=== PATIENT | female | born 1990 | race Caucasian/White ===

== ENCOUNTER 2018-05-03 18:11 | Emergency (ER) | payer OTHER ==
[~2018-05-03] VITALS: Ht 160 cm; Wt 100.0 kg
[2018-05-03] MEDS ORDERED: IOHEXOL 350 MG/ML 10 ML VIAL (for RAD DIAG) IVCONTRAST ONE (18:12)
[2018-05-03 19:22] VITALS: BP 133/75; PULSE 96; RESP 16; TEMP 98.6; O2SAT 100
--- NOTE | 2018-05-03 23:47 | PD ---
HPI Chief Complaint: Abdominal Pain Time Seen by Provider: 23:35 Travel History International Travel<30 days: No Contact w/Intl Traveler<30days: No Traveled to known affect area: No History of Present Illness HPI 28yo F with PMH of crohn's disease, hernia repair with mesh and consequent complication with abscess presents to the ED with c/o left lower abdominal pain for a few days but worst since last night. Pain is sharp, sometimes goes up left side. Associated with nausea. Denies any fever, chest pain, sob, vomiting , dysuria, hematuria, vaginal discharge. Pt is on her menstrual period. She just move from [place] so she does not have GI physician here. Mesh repair was completed in [place] as well and it was in 2017. Pt said she is no longer on any medication for her Crohn's because they thought it may worsen the abscess. She does have daily bloody diarrhea from her Crohns. PFSH Past Medical History Respiratory: Yes (ASTHMA) ?: Not LMP: 04/30/18 Social History Tobacco Use: No Allergies-Medications (Allergen,Severity, Reaction): Coded Allergies: Cephalosporins (Verified Allergy, Severe, ANAPHYLAXIS, 05/03/18) Penicillins (Verified Allergy, Severe, ANAPHYLAXIS, 05/03/18) Reported Meds & Prescriptions Reported Meds & Active Scripts Active Macrobid (Nitrofurantoin Monohydrate Macrocrystals) 100 Mg Capsule 100 Mg PO BID 7 Days Review of Systems Except as stated in HPI: all other systems reviewed are Neg Physical Exam Narrative GENERAL: 28yo F in mild distress. SKIN: Focused skin assessment warm/dry. HEAD: Atraumatic. Normocephalic. EYES: Pupils equal and round. No scleral icterus. No injection or drainage. ENT: No nasal bleeding or discharge. Mucous membranes pink and moist. NECK: Trachea midline. No JVD. CARDIOVASCULAR: Regular rate and rhythm. No murmur appreciated. RESPIRATORY: No accessory muscle use. Clear to auscultation. Breath sounds equal bilaterally. GASTROINTESTINAL: Abdomen soft, obese. +TTP LLQ and suprapubic region. No rebound tenderness or guarding. MUSCULOSKELETAL: No obvious deformities. No clubbing. No cyanosis. No edema. NEUROLOGICAL: Awake and alert. No obvious cranial nerve deficits. Motor grossly within normal limits. Normal speech. PSYCHIATRIC: Appropriate mood and affect; insight and judgment normal. Data Data Last Documented VS Vital Signs Date Time Temp Pulse Resp B/P (MAP) Pulse Ox O2 Delivery O2 Flow Rate FiO2 05/03/18 19:22 98.6 96 16 133/75 (94) 100 Orders Orders Complete Blood Count With Diff (05/03/18 23:40) Comprehensive Metabolic Panel (05/03/18 23:40) Lipase (05/03/18 23:40) Prothrombin Time / Inr (Pt) (05/03/18 23:40) Act Partial Throm Time (Ptt) (05/03/18 23:40) Urinalysis - C+S If Indicated (05/03/18 23:40) Ed Urine Pregnancytest Poc (05/03/18 23:40) Ct Abd/Pel W Iv Contrast(Rout) (05/04/18 ) Morphine Inj (Morphine Inj) (05/04/18 00:45) Ondansetron Odt (Zofran Odt) (05/04/18 00:45) Urine Culture (05/03/18 23:45) Ciprofloxacin 400 Mg Premix (Cipro 400 M (05/04/18 01:00) Nitrofurantoin Monohyd Macrocr (Macrobid (05/04/18 01:00) Iohexol 350 Inj (Omnipaque 350 Inj) (05/03/18 18:12) Ed Discharge Order (05/04/18 01:33) Labs Laboratory Tests Test 05/03/18 23:45 05/04/18 00:18 Urine Color YELLOW Urine Turbidity HAZY Urine pH 6.0 Urine Specific [place] 1.030 Urine Protein TRACE mg/dL Urine Glucose (UA) NEG mg/dL Urine Ketones NEG mg/dL Urine Occult Blood LARGE Urine Nitrite NEG Urine Bilirubin NEG Urine Urobilinogen LESS THAN 2.0 MG/DL Urine Leukocyte Esterase LARGE Urine RBC 7 /hpf Urine WBC 17 /hpf Urine Squamous Epithelial Cells 34 /hpf Urine Renal Epithelial Cells <1 /hpf Urine Bacteria FEW /hpf Urine Hyaline Casts 2 /lpf Urine Mucus MANY /lpf Microscopic Urinalysis Comment CULTURE INDICATED White Blood Count 8.4 TH/MM3 Red Blood Count 4.02 MIL/MM3 Hemoglobin 10.4 GM/DL Hematocrit 31.5 % Mean Corpuscular Volume 78.4 FL Mean Corpuscular Hemoglobin 25.8 PG Mean Corpuscular Hemoglobin Concent 32.9 % Red Cell Distribution Width 14.2 % Platelet Count 392 TH/MM3 Mean Platelet Volume 8.0 FL Neutrophils (%) (Auto) 67.1 % Lymphocytes (%) (Auto) 26.0 % Monocytes (%) (Auto) 4.8 % Eosinophils (%) (Auto) 1.8 % Basophils (%) (Auto) 0.3 % Neutrophils # (Auto) 5.7 TH/MM3 Lymphocytes # (Auto) 2.2 TH/MM3 Monocytes # (Auto) 0.4 TH/MM3 Eosinophils # (Auto) 0.2 TH/MM3 Basophils # (Auto) 0.0 TH/MM3 CBC Comment DIFF FINAL Differential Comment Prothrombin Time 10.0 SEC Prothromb Time International Ratio 1.0 RATIO Activated Partial Thromboplast Time 22.9 SEC Blood Urea Nitrogen 10 MG/DL Creatinine 0.73 MG/DL Random Glucose 84 MG/DL Total Protein 8.1 GM/DL Albumin 3.4 GM/DL Calcium Level 8.5 MG/DL Alkaline Phosphatase 99 U/L Aspartate Amino Transf (AST/SGOT) 11 U/L Alanine Aminotransferase (ALT/SGPT) 25 U/L Total Bilirubin 0.2 MG/DL Sodium Level 140 MEQ/L Potassium Level 3.5 MEQ/L Chloride Level 104 MEQ/L Carbon Dioxide Level 24.7 MEQ/L Anion Gap 11 MEQ/L Estimat Glomerular Filtration Rate 96 ML/MIN Lipase 173 U/L MDM Medical Decision Making Medical Screen Exam Complete: Yes Emergency Medical Condition: Yes Differential Diagnosis Abscess vs. crohn's exacerbation vs. diverticulitis Narrative Course 28yo F with crohns disease here with left lower abdominal pain that is worst since yesterday. Will do labs and CT a/p to r/o any abscess of colitis. Pt has some suprapubic tenderness so urinalysis ordered. negative. Morphine and zofran given. Sign out to my PA to follow up. Diagnosis Primary Impression: Abdominal pain Qualified Codes: R10.32 - Left lower quadrant pain Scripts Nitrofurantoin Monohydrate Macrocrystals (Macrobid) 100 Mg Capsule 100 MG PO BID for Infection for 7 Days, #14 CAP 0 Refills Prov: Penelope Gómez DO 05/04/18 Penelope Gómez DO May 03, 2018 23:47
[2018-05-04 00:30] LABS: AUTOMATED NEUTROPHIL # 5.7 TH/MM3 (1.8-7.7); BASOPHIL % 0.3 % (0.0-2.0); EOSINOPHIL # 0.2 TH/MM3 (0-0.4); EOSINOPHIL % 1.8 % (0.0-4.0); HEMATOCRIT 31.5 % (35.0-46.0); HEMOGLOBIN 10.4 GM/DL (11.6-15.3); LYMPHOCYTE # 2.2 TH/MM3 (1.0-4.8); MEAN CELL VOLUME 78.4 FL (80.0-100.0); MEAN CORPUSCULAR HEMOGLOBIN 25.8 PG (27.0-34.0); MEAN CORPUSCULAR HGB CONC 32.9 % (32.0-36.0); MONO % 4.8 % (0.0-8.0); MONOCYTE # 0.4 TH/MM3 (0-0.9); NEUT % 67.1 % (16.0-70.0); PLATELET COUNT 392 TH/MM3 (150-450); RED BLOOD COUNT 4.02 MIL/MM3 (4.00-5.30); RED CELL DISTRIBUTION WIDTH 14.2 % (11.6-17.2); WHITE BLOOD COUNT 8.4 TH/MM3 (4.0-11.0)
[2018-05-04 00:39] LABS: BACTERIA, URINE FEW /hpf; BILIRUBIN, URINE NEG (NEG); BLOOD, URINE LARGE (NEG); GLUCOSE,URINE NEG (NEG); HYALINE CAST, URINE 2 /lpf (RARE); KETONE, URINE NEG (NEG); MUCUS URINE MANY /lpf (OCC); NITRITE,URINE NEG (NEG); RENAL EPITHELIAL CELLS <1 /hpf; SQUAMOUS EPITHELIAL CELL URINE 34 /hpf (0-5); URINE COLOR YELLOW (YELLW/STRAW); URINE LEUKOCYTE ESTERASE LARGE (NEG)
[2018-05-04] MEDS ORDERED: ONDANSETRON ODT 4 MG TAB PO ONE (00:45)
[2018-05-04] MEDS ORDERED: MORPHINE SULFATE 4 MG/ML INJ IV PUSH ONE (00:45)
[2018-05-04] MEDS ORDERED: CIPROFLOXACIN 400 MG PREMIX 200 ML IV ONE (01:00)
[2018-05-04] MEDS ORDERED: NITROFURANTOIN MONOHYD MACROCR 100 MG CAP PO ONE (01:00)
[2018-05-04 01:17] LABS: ALBUMIN 3.4 GM/DL (3.4-5.0); ALT (GPT) 25 U/L (10-53); AST (GOT) 11 U/L (15-37); BICARBONATE 24.7 MEQ/L (21.0-32.0); BLOOD UREA NITROGEN 10 MG/DL (7-18); CALCIUM 8.5 MG/DL (8.5-10.1); CHLORIDE 104 MEQ/L (98-107); CREATININE 0.73 MG/DL (0.50-1.00); GLOMERULAR FILTRATION RATE 96 ML/MIN (>89); GLUCOSE,RANDOM 84 MG/DL (74-106); SODIUM (NA) 140 MEQ/L (136-145)
[2018-05-04 01:19] LABS: ALKALINE PHOSPHATASE 99 U/L (45-117); TOTAL BILIRUBIN ADULT 0.2 MG/DL (0.2-1.0); TOTAL PROTEIN 8.1 GM/DL (6.4-8.2)
--- NOTE | 2018-05-04 01:28 | RADRPT ---
EXAM DATE: 05/04/2018 1:16 AM EDT AGE/SEX: 28 years / Female INDICATIONS: Left lower qaudrant pain. CLINICAL DATA: This is the patient's initial encounter. Patient reports that signs and symptoms have been present for 2 days and indicates a pain score of 8/10. MEDICAL/SURGICAL HISTORY: Crohn's disease. Asthma. . Hernia repair with mesh ORAL CONTRAST: No oral contrast ingested. RADIATION DOSE: 16.99 CTDI (mGy) COMPARISON: No prior [facility] exams available for comparison. TECHNIQUE: Multiple contiguous axial images were obtained through the abdomen and pelvis following b olus infusion of 93 ml Omnipaque 350 (iohexol) nonionic water-soluble contrast as a cumulative dose for multiple exams. No oral contrast ingested. Using automated exposure control and adjustment of t he mA and/or kV according to patient size, the radiation dose was kept as low as reasonably achievabl e to obtain optimal diagnostic quality images. FINDINGS: Lower Lungs: The visualized lower lungs are clear. Liver: The liver has a homogeneous density without space-occupying lesion. There is no dilation of th e biliary tree. Gallbladder unremarkable. Spleen: Homogeneous density without enlargement. Pancreas: Unremarkable without mass or calcification. Kidneys: Normal in size and shape. No evidence of mass or hydronephrosis. Adrenal Glands: Unremarkable. Aorta: The aorta and proximal iliac vessels are grossly unremarkable without aneurysmal dilation. Bowel/Mesentery: The bowel loops are grossly unremarkable. The cecum and sigmoid colon have a normal configuration. The appendix is unremarkable. No inflammatory changes. There is stool throughout the colon. Abdominal Wall: Umbilical hernia containing a loop of small bowel. No evidence of obstruction at thi s time. Retroperitoneum: No evidence of adenopathy in the retrocrural, para-aortic, or deep pelvic regions. Bladder: Contours are smooth. No calcified stones. Reproductive Organs: No abnormal masses or calcifications seen. Inguinal: The inguinal region is unremarkable without evidence of adenopathy. Bony Structures: Unremarkable. CONCLUSION: 1. Small umbilical hernia containing a loop of small bowel without obstruction. 2. Otherwise, unremarkable exam for patient's age. Electronically signed by: Hiro Jha MD 05/04/2018 1:26 AM EDT
[2018-05-04] MEDS ORDERED: MACR100C2 PO (01:33)
--- NOTE | 2018-05-04 01:35 | PD ---
Data Data Last Documented VS Vital Signs Date Time Temp Pulse Resp B/P (MAP) Pulse Ox O2 Delivery O2 Flow Rate FiO2 05/03/18 19:22 98.6 96 16 133/75 (94) 100 Orders Orders Complete Blood Count With Diff (05/03/18 23:40) Comprehensive Metabolic Panel (05/03/18 23:40) Lipase (05/03/18 23:40) Prothrombin Time / Inr (Pt) (05/03/18 23:40) Act Partial Throm Time (Ptt) (05/03/18 23:40) Urinalysis - C+S If Indicated (05/03/18 23:40) Ed Urine Pregnancytest Poc (05/03/18 23:40) Ct Abd/Pel W Iv Contrast(Rout) (05/04/18 ) Morphine Inj (Morphine Inj) (05/04/18 00:45) Ondansetron Odt (Zofran Odt) (05/04/18 00:45) Urine Culture (05/03/18 23:45) Ciprofloxacin 400 Mg Premix (Cipro 400 M (05/04/18 01:00) Nitrofurantoin Monohyd Macrocr (Macrobid (05/04/18 01:00) Iohexol 350 Inj (Omnipaque 350 Inj) (05/03/18 18:12) Ed Discharge Order (05/04/18 01:33) Labs Laboratory Tests Test 05/03/18 23:45 05/04/18 00:18 Urine Color YELLOW Urine Turbidity HAZY Urine pH 6.0 Urine Specific [place] 1.030 Urine Protein TRACE mg/dL Urine Glucose (UA) NEG mg/dL Urine Ketones NEG mg/dL Urine Occult Blood LARGE Urine Nitrite NEG Urine Bilirubin NEG Urine Urobilinogen LESS THAN 2.0 MG/DL Urine Leukocyte Esterase LARGE Urine RBC 7 /hpf Urine WBC 17 /hpf Urine Squamous Epithelial Cells 34 /hpf Urine Renal Epithelial Cells <1 /hpf Urine Bacteria FEW /hpf Urine Hyaline Casts 2 /lpf Urine Mucus MANY /lpf Microscopic Urinalysis Comment CULTURE INDICATED White Blood Count 8.4 TH/MM3 Red Blood Count 4.02 MIL/MM3 Hemoglobin 10.4 GM/DL Hematocrit 31.5 % Mean Corpuscular Volume 78.4 FL Mean Corpuscular Hemoglobin 25.8 PG Mean Corpuscular Hemoglobin Concent 32.9 % Red Cell Distribution Width 14.2 % Platelet Count 392 TH/MM3 Mean Platelet Volume 8.0 FL Neutrophils (%) (Auto) 67.1 % Lymphocytes (%) (Auto) 26.0 % Monocytes (%) (Auto) 4.8 % Eosinophils (%) (Auto) 1.8 % Basophils (%) (Auto) 0.3 % Neutrophils # (Auto) 5.7 TH/MM3 Lymphocytes # (Auto) 2.2 TH/MM3 Monocytes # (Auto) 0.4 TH/MM3 Eosinophils # (Auto) 0.2 TH/MM3 Basophils # (Auto) 0.0 TH/MM3 CBC Comment DIFF FINAL Differential Comment Prothrombin Time 10.0 SEC Prothromb Time International Ratio 1.0 RATIO Activated Partial Thromboplast Time 22.9 SEC Blood Urea Nitrogen 10 MG/DL Creatinine 0.73 MG/DL Random Glucose 84 MG/DL Total Protein 8.1 GM/DL Albumin 3.4 GM/DL Calcium Level 8.5 MG/DL Alkaline Phosphatase 99 U/L Aspartate Amino Transf (AST/SGOT) 11 U/L Alanine Aminotransferase (ALT/SGPT) 25 U/L Total Bilirubin 0.2 MG/DL Sodium Level 140 MEQ/L Potassium Level 3.5 MEQ/L Chloride Level 104 MEQ/L Carbon Dioxide Level 24.7 MEQ/L Anion Gap 11 MEQ/L Estimat Glomerular Filtration Rate 96 ML/MIN Lipase 173 U/L [facility] Medical Record Reviewed: Yes Supervised Visit with THEODORE: No Narrative Course See Dr. Gómez's note for complete history of present illness. I was asked to follow-up on CT abdomen and pelvis results. CT imaging reveals small umbilical hernia without strangulation, otherwise negative. Urinalysis is suggestive of UTI and Dr. Gómez ordered Cipro and Macrobid here. Her lab work is otherwise unremarkable. She will be discharged with Macrobid pending culture results. Discussed signs and symptoms that would warrant returning to the emergency room. Stable for discharge. Diagnosis Primary Impression: Abdominal pain Qualified Codes: R10.32 - Left lower quadrant pain Additional Impression: UTI (urinary tract infection) Referrals: [facility] Additional Instruction: Establish care with a primary care physician for follow-up purposes. Medication as prescribed. Return for any acutely new or worsening symptoms. Med/Other Pt SpecificInfo: Prescription(s) given Scripts Nitrofurantoin Monohydrate Macrocrystals (Macrobid) 100 Mg Capsule 100 MG PO BID for Infection for 7 Days, #14 CAP 0 Refills Prov: Penelope Gómez DO 05/04/18 Disposition: 01 DISCHARGE HOME Condition: Stable Daniel Tierney May 04, 2018 01:35
== END 2018-05-04 01:54 | disposition home or self-care (01) ==
LOC: NEPD 18:11
DX: N39.0 Urinary tract infection, site not specified (principal); K42.9 Umbilical hernia without obstruction or gangrene; K50.911 Crohn's disease, unspecified, with rectal bleeding
CPT/HCPCS: 74177; 80053; 81001; 83690; 84703; 85025; 85610; 85730; 87086; 96374; 99284; J2270; Q9967